=== PATIENT | female | born 1935 | race Caucasian/White ===

== ENCOUNTER 2023-01-05 12:14 | Outpatient (CLI) | payer MEDICARE, OTHER | END 2023-01-05 12:15 | disposition home or self-care (01) | LOC: ULT 12:14 | PROVIDERS: ATTEND Urology | DX: R33.9 Retention of urine, unspecified (principal); I50.9 Heart failure, unspecified; N95.2 Postmenopausal atrophic vaginitis; Z87.448 Personal history of other diseases of urinary system | CPT/HCPCS: 76770 ==

== ENCOUNTER 2023-05-25 13:29 | Outpatient (CLI) | payer MEDICARE, OTHER | END 2023-05-25 13:30 | disposition home or self-care (01) | LOC: RAD 13:29 | PROVIDERS: ATTEND Internal Medicine Critical Care Medicine | DX: R06.00 Dyspnea, unspecified (principal); J84.10 Pulmonary fibrosis, unspecified; I51.7 Cardiomegaly | CPT/HCPCS: 71046 ==

== ENCOUNTER 2023-11-01 09:59 | Outpatient (CLI) | payer MEDICARE, OTHER | END 2023-11-01 10:00 | disposition home or self-care (01) | LOC: RAD 09:59 | PROVIDERS: ATTEND Internal Medicine Critical Care Medicine | DX: R06.00 Dyspnea, unspecified (principal); J98.4 Other disorders of lung; M89.8X2 Other specified disorders of bone, upper arm | CPT/HCPCS: 71046 ==

== ENCOUNTER 2024-01-02 10:42 | Outpatient (CLI) | payer MEDICARE, OTHER | END 2024-01-02 10:43 | disposition home or self-care (01) | LOC: BICRAD 10:42 | PROVIDERS: ATTEND Nurse Practitioner Family | DX: S69.91XS Unspecified injury of right wrist, hand and finger(s), sequela (principal); M19.041 Primary osteoarthritis, right hand; M18.11 Unilateral primary osteoarthritis of first carpometacarpal joint, right hand ==

== ENCOUNTER 2024-08-02 17:29 | Inpatient (IN) | payer MEDICARE, OTHER ==
[2024-08-02] MEDS ORDERED: Acetaminophen 650 MG Suppository PR PRN (21:07)
[2024-08-02] MEDS ORDERED: Ondansetron PF 4 MG/2 ML Vial IVP PRN (21:07)
[2024-08-02] MEDS: Piperacillin/Tazobactam 3.375 GM in Sodium Chloride 0.9% 100 ML IVPB SCH (21:40)
[2024-08-02] MEDS: Furosemide 20 MG (2 mL) VIAL SLOW IVP SCH (21:41)
[2024-08-03] MEDS: Piperacillin/Tazobactam 3.375 GM in Sodium Chloride 0.9% 100 ML IVPB SCH (01:31)
[2024-08-03 04:27] LABS: #Basophils Less than 0.03 10x3/uL (0.0-0.2); %Basophils 0.1 % (0.0-1.0); %Eosinophils 1.6 % (0.0-10.0); %Lymphocytes 12.5 % (21.0-51.0); %Monocytes 13.2 % (0.0-10.0); %Neutrophils 72.2 % (42.0-75.0); Hematocrit 38.1 % (36.0-47.0); Hemoglobin 12.6 g/dL (12.0-16.0); Mean Corpuscular HGB CONC 33.1 g/dL (32.0-36.0); Mean Corpuscular Hemoglobin 32.2 pg (27.0-31.0); Mean Corpuscular Volume 97.4 fL (78.0-98.0); Mean Platelet Volume 8.6 fL (7.4-10.4); Platelet Count 201 10x3/uL (130-400); RBC Distribution Width 13.5 % (11.5-14.5); Red Blood Cell (RBC) Count 3.91 mill/uL (4.20-5.40)
[2024-08-03 04:51] LABS: Anion Gap 13 mmol/L (10-20); BUN (Urea Nitrogen) 15 mg/dL (9.8-20.1); Calc. Creatinine Clearance 53 mL/min (70-130); Calcium 8.7 mg/dL (7.8-10.44); Carbon Dioxide 25 mmol/L (23-31); Chloride 100 mmol/L (98-107); Estimated GFR 76; Glucose 86 mg/dL (83-110); Sodium 134 mmol/L (136-145)
[2024-08-03] MEDS: Levothyroxine Sodium 100 MCG TAB PO SCH (05:07)
[2024-08-03] MEDS: Furosemide 20 MG (2 mL) VIAL SLOW IVP SCH (09:07)
[2024-08-03] MEDS: Fish Oil 1,000 MG CAP PO SCH (09:08)
[2024-08-03] MEDS: Spironolactone 25 MG TAB PO SCH (09:08)
[2024-08-03] MEDS: Pantoprazole DR 40 MG TAB PO SCH (09:08)
[2024-08-03] MEDS: Enoxaparin 40 MG (0.4 mL) SYRINGE SC SCH (09:08)
[2024-08-03] MEDS: Acetaminophen 500 MG TAB PO PRN (10:47)
[2024-08-03 13:27] LABS: ALT (SGPT) 12 U/L (8-55); AST (SGOT) 20 U/L (5-34); Albumin 2.7 g/dL (3.4-4.8); Alkaline Phosphatase 65 U/L (40-110); Anion Gap 13 mmol/L (10-20); BUN (Urea Nitrogen) 16 mg/dL (9.8-20.1); Calc. Creatinine Clearance 51 mL/min (70-130); Calcium 8.6 mg/dL (7.8-10.44); Carbon Dioxide 28 mmol/L (23-31); Chloride 97 mmol/L (98-107); Estimated GFR 73; Globulin 4.2 g/dL (2.4-3.5); Glucose 97 mg/dL (83-110); Potassium 3.9 mmol/L (3.5-5.1); Protein, Total 6.9 g/dL (5.8-8.1); Sodium 134 mmol/L (136-145)
[2024-08-03 14:30] VITALS: BMI 23.7
[2024-08-03] MEDS: Atorvastatin Calcium 20 MG TAB PO SCH (20:30)
[2024-08-04 04:46] LABS: #Basophils Less than 0.03 10x3/uL (0.0-0.2); %Basophils 0.3 % (0.0-1.0); %Eosinophils 3.2 % (0.0-10.0); %Lymphocytes 10.8 % (21.0-51.0); %Monocytes 13.2 % (0.0-10.0); %Neutrophils 72.1 % (42.0-75.0); Hematocrit 35.8 % (36.0-47.0); Hemoglobin 11.9 g/dL (12.0-16.0); Mean Corpuscular HGB CONC 33.2 g/dL (32.0-36.0); Mean Corpuscular Hemoglobin 31.8 pg (27.0-31.0); Mean Corpuscular Volume 95.7 fL (78.0-98.0); Mean Platelet Volume 8.6 fL (7.4-10.4); Platelet Count 204 10x3/uL (130-400); RBC Distribution Width 13.3 % (11.5-14.5); Red Blood Cell (RBC) Count 3.74 mill/uL (4.20-5.40)
[2024-08-04 05:46] LABS: Anion Gap 12 mmol/L (10-20); BUN (Urea Nitrogen) 14 mg/dL (9.8-20.1); Calc. Creatinine Clearance 58 mL/min (70-130); Calcium 8.3 mg/dL (7.8-10.44); Carbon Dioxide 26 mmol/L (23-31); Chloride 102 mmol/L (98-107); Estimated GFR 81; Glucose 97 mg/dL (83-110); Potassium 3.6 mmol/L (3.5-5.1); Sodium 136 mmol/L (136-145)
[2024-08-05 06:24] LABS: Anion Gap 14 mmol/L (10-20); BUN (Urea Nitrogen) 10 mg/dL (9.8-20.1); Calc. Creatinine Clearance 58 mL/min (70-130); Carbon Dioxide 26 mmol/L (23-31); Chloride 103 mmol/L (98-107); Estimated GFR 84; Glucose 99 mg/dL (83-110); Potassium 3.5 mmol/L (3.5-5.1); Sodium 139 mmol/L (136-145)
[2024-08-05 06:32] LABS: #Basophils Less than 0.03 10x3/uL (0.0-0.2); %Basophils 0.4 % (0.0-1.0); %Eosinophils 2.7 % (0.0-10.0); %Lymphocytes 12.8 % (21.0-51.0); %Monocytes 14.4 % (0.0-10.0); %Neutrophils 69.2 % (42.0-75.0); Hematocrit 34.7 % (36.0-47.0); Hemoglobin 11.8 g/dL (12.0-16.0); Mean Corpuscular Hemoglobin 31.4 pg (27.0-31.0); Mean Corpuscular Volume 92.3 fL (78.0-98.0); Mean Platelet Volume 8.5 fL (7.4-10.4); Platelet Count 193 10x3/uL (130-400); RBC Distribution Width 13.2 % (11.5-14.5); Red Blood Cell (RBC) Count 3.76 mill/uL (4.20-5.40)
[2024-08-06 08:04] LABS: #Basophils Less than 0.03 10x3/uL (0.0-0.2); %Basophils 0.3 % (0.0-1.0); %Monocytes 13.2 % (0.0-10.0); %Neutrophils 69.9 % (42.0-75.0); Hematocrit 37.6 % (36.0-47.0); Hemoglobin 12.4 g/dL (12.0-16.0); Mean Corpuscular Hemoglobin 32.1 pg (27.0-31.0); Mean Corpuscular Volume 97.4 fL (78.0-98.0); Mean Platelet Volume 8.5 fL (7.4-10.4); Platelet Count 201 10x3/uL (130-400); RBC Distribution Width 13.2 % (11.5-14.5); Red Blood Cell (RBC) Count 3.86 mill/uL (4.20-5.40)
[2024-08-06 08:31] LABS: Anion Gap 10 mmol/L (10-20); BUN (Urea Nitrogen) 10 mg/dL (9.8-20.1); Calc. Creatinine Clearance 50 mL/min (70-130); Calcium 8.6 mg/dL (7.8-10.44); Carbon Dioxide 30 mmol/L (23-31); Chloride 100 mmol/L (98-107); Estimated GFR 73; Glucose 92 mg/dL (83-110); Potassium 4.5 mmol/L (3.5-5.1); Sodium 135 mmol/L (136-145)
[2024-08-06 16:52] VITALS: BP 122/75; TEMP 98
== END 2024-08-06 16:23 | disposition home or self-care (01) | DRG 689 ==
LOC: ERHOLD 17:29 → T4-A 19:46
PROVIDERS: ADMIT Family Medicine; ATTEND Hospitalist
DX: N10 Acute pyelonephritis (principal); I50.33 Acute on chronic diastolic (congestive) heart failure; J18.9 Pneumonia, unspecified organism; C22.1 Intrahepatic bile duct carcinoma; I13.0 Hypertensive heart and chronic kidney disease with heart failure and stage 1 through stage 4 chronic kidney disease, or unspecified chronic kidney disease; E87.1 Hypo-osmolality and hyponatremia; D49.59 Neoplasm of unspecified behavior of other genitourinary organ; J84.10 Pulmonary fibrosis, unspecified; E78.5 Hyperlipidemia, unspecified; E03.9 Hypothyroidism, unspecified; N18.9 Chronic kidney disease, unspecified; Z87.891 Personal history of nicotine dependence; Z88.1 Allergy status to other antibiotic agents; Z66 Do not resuscitate; Z79.899 Other long term (current) drug therapy; N83.291 Other ovarian cyst, right side
CPT/HCPCS: 36415; 71275; 74177; 76856; 80048; 80053; 81001; 82105; 82378; 83605; 83690; 83880; 84145; 84484; 85025; 85379; 86301; 86304; 87040; 87077; 87086; 87186; 93005; 93976; 96374; 96375; J0692; J1650; J1940; J2543; J3370; Q9967